=== PATIENT | male | born 1950 | race Caucasian/White ===

== ENCOUNTER → 2018-04-02 | Outpatient (CLI) | payer MEDICARE, BC ==
[~2018-04-02] MED LIST: GLUC-125 PO; HYDR12.561 PO; KET10 PO; NAPR500T31 PO; NAPR550T20 PO; OXYC-689 PO; PNEI IJ; PNEU0.5D3 IM; TAMS0.4C70 PO
[2018-04-02 09:00] LABS: PLATELET COUNT, AUTOMATED 232 K/uL (150-450)
[2018-04-02 10:56] LABS: LDL CHOLESTEROL 103 mg/dl
== END ==
LOC: LAB 08:33
PROVIDERS: ATTEND Internal Medicine
DX: Z12.5 Encounter for screening for malignant neoplasm of prostate (principal); N40.1 Benign prostatic hyperplasia with lower urinary tract symptoms; I10 Essential (primary) hypertension
CPT/HCPCS: 36415; 81001; 84443; 85025; G0103; 82040; 82247; 82310; 82374; 82435; 82465; 82565; 82947; 83718; 84075; 84132; 84153; 84155; 84295; 84450; 84460; 84478; 84520